=== PATIENT | male | born 1945 | race Caucasian/White ===

== ENCOUNTER 2017-06-22 22:05 | Emergency (ER) | payer SELFPAY ==
[~2017-06-22] VITALS: Ht 157.5 cm; Wt 61.0 kg
[2017-06-22 22:10] VITALS: BP 149/78
--- NOTE | 2017-06-22 22:25 | NUR ---
To bed 7.
[2017-06-22] MEDS ORDERED: NACL 0.9% 2,000 ML IV ONE (22:55)
--- NOTE | 2017-06-22 23:02 | NUR ---
12 LEAD EKG DONE BY SURGEON ASSISTANT.
--- NOTE | 2017-06-22 23:08 | NUR ---
GAUGE 18 IV LINE ESTABLISHED TO THE RIGHT FOREARM. BLOOD DRAWN AND SENT TO THE LAB. NS 2 LITERS BOLUS STARTED.
[2017-06-22 23:25] LABS: BASOPHILS # (AUTO) 0.1 K/uL (0.00-0.22); BASOPHILS % (AUTO) 2.3 % (0.0-2.0); EOSINOPHILS # (AUTO) 0.1 K/uL (0-0.4); EOSINOPHILS % (AUTO) 2.1 % (0.0-4.0); HEMATOCRIT 42.9 % (36-52); HEMOGLOBIN 14.1 g/dL (12.0-18.0); LYMPHOCYTES # (AUTO) 1.5 K/uL (2.0-11.5); LYMPHOCYTES % (AUTO) 24.6 % (20.5-51.1); MEAN CORPUSCULAR HEMOGLOBIN 29 pg (27-31); MEAN CORPUSCULAR HGB CONC 33 g/dL (33-37); MEAN CORPUSCULAR VOLUME 87 fL (80-94); MONOCYTES # (AUTO) 0.6 K/uL (0.8-1.0); MONOCYTES % (AUTO) 10.6 % (1.7-9.3); NEUTROPHILS # (AUTO) 3.8 K/uL (1.8-7.7); NEUTROPHILS % (AUTO) 60.4 % (42.2-75.2); PLATELET COUNT (AUTO) 191 K/uL (140-450); RED BLOOD CELL COUNT(AUTO) 4.91 MIL/uL (4.20-6.10); RED CELL DISTRIBUTION WIDTH 12.6 % (11.6-13.7); WHITE BLOOD COUNT (AUTO) 6.1 K/uL (4.8-10.8)
[2017-06-22 23:38] LABS: ALBUMIN 3.5 g/dL (3.4-5.0); CARBON DIOXIDE 27.2 mmol/L (21-32); CREATININE 1.5 mg/dL (0.7-1.3); POTASSIUM 4.2 mmol/L (3.5-5.1); TOTAL BILIRUBIN 0.3 mg/dL (0.0-1.0)
--- NOTE | 2017-06-22 23:52 | NUR ---
URINE SPECIMEN COLLECTED AND SENT TO THE LAB.
[2017-06-22 23:56] LABS: APPEARANCE,URINE CLEAR (CLEAR); BILIRUBIN,URINE NEGATIVE (NEGATIVE); BLOOD, URINE NEGATIVE (NEGATIVE); COLOR,URINE YELLOW (YELLOW); LEUKOCYTE ESTERASE ,URINE NEGATIVE (NEGATIVE); NITRITE, URINE NEGATIVE (NEGATIVE); PH,URINE 5.5 (5.0-9.0); UGLUCOSE 3+ (NEGATIVE)
[2017-06-23] MEDS ORDERED: ASPIRIN 81 MG TAB.CHEW PO ONE
[2017-06-23 00:05] LABS: RBC,URINE NONE SEEN /HPF (0-5); WBC,URINE NONE SEEN /HPF (0-5)
--- NOTE | 2017-06-23 00:08 | NUR ---
ASPIRIN 162 MG PO GIVEN. PT. VERBALIZED IMPROVEMENT OF HEADACHE. MD BACK AT BEDSIDE TO RE-EVALUATE AND DISCUSS PLAN OF CARE WITH PATIENT AND FAMILY. VS REMAIN STABLE.
--- NOTE | 2017-06-23 00:15 | NUR ---
ABG DRAWN BY RT. HMCORFPGO=[id number]. NOTIFIED.
--- NOTE | 2017-06-23 00:18 | NUR ---
PORTABLE CXR DONE.
[2017-06-23] MEDS ORDERED: INSULIN HUMAN REGULAR 100 UNITS/ML 10 ML VIAL IVP ONE (00:20)
--- NOTE | 2017-06-23 00:28 | NUR ---
10 UNITS OF REGULAR INSULIN IVP GIVEN ORDERED.
[2017-06-23 00:29] LABS: PROTHROMBIN TIME 10.1 secs (10.8-13.4)
[2017-06-23] MEDS ORDERED: NACL 0.9% 1,000 ML IV SCH (00:32)
[2017-06-23] MEDS ORDERED: MORPHINE SULFATE 2 MG/ML SYR IVP PRN ×2 (00:35→00:40)
[2017-06-23] MEDS ORDERED: ONDANSETRON 4 MG/2 ML VIAL IM/IVP PRN (00:35)
[2017-06-23] MEDS ORDERED: HYDROcodone/APAP 7.5/325 MG 1 TAB PO PRN (00:35)
[2017-06-23] MEDS ORDERED: DOCUSATE SODIUM 100 MG GELCAP PO PRN (00:35)
[2017-06-23] MEDS ORDERED: ACETAMINOPHEN 325 MG TAB PO PRN (00:35)
[2017-06-23] MEDS ORDERED: DEXTROSE 50% 50 ML SYR IVP PRN (00:40)
[2017-06-23] MEDS ORDERED: INSULIN LISPRO SLIDING SCALE 100 UNITS/ML VIAL SUBQ PRN (00:40)
[2017-06-23] MEDS ORDERED: NITROGLYCERIN 0.4 MG TAB SL PRN (00:40)
[2017-06-23] MEDS ORDERED: ATORVASTATIN 20 MG TAB PO SCH ×2 (00:45→21:00)
[2017-06-23] MEDS ORDERED: METOPROLOL SUCCINATE 50 MG TABER PO SCH ×2 (00:45→09:00)
[2017-06-23 00:59] LABS: BARBITURATE, URINE NEG. ng/ml (NEG <=200); BENZODIAZEPINE, URINE NEG. ng/mL (NEG <=200); CANNABINOID, URINE NEG. ng/mL (NEG <=50); COCAINE, URINE NEG. ng/mL (NEG <=300); OPIATE, URINE NEG. ng/mL (NEG <=2000); PHENCYCLIDINE SCREEN,URINE NEG. ng/mL (NEG <=25)
[2017-06-23 01:07] LABS: CHOL/HDL RATIO 5.5 (1-4.5); FREE T4 (FREE THYROXINE) 1.1 ng/dL (0.76-1.46); MAGNESIUM 1.8 mg/dL (1.8-2.4); PHOSPHORUS 3.6 mg/dL (2.5-4.9); THYROID STIMULATING HORMONE 2.05 uIU/mL (0.34-3.74)
--- NOTE | 2017-06-23 01:13 | NUR ---
PT.REFUSED TO BE ADMITTED. WILL B LAVING AGAINST MEDICAL ADVICE. REPAT BLOOD SUGAR ODHOO=[id number]. MADE AWARE.
--- NOTE | 2017-06-23 01:35 | NUR ---
Patient does not wish to proceed with medical care recommended by Dr.Martin Fiore. Patient given information related to possible complications, up to and including , which could occur as a result of leaving hospital at this time. Patient verbalizes understanding of risks involved leaving against medical advice. Patient has signed AMA form. Copy of labs,12 lead ekg report also given. Advised to follow-up with PMD courtney and to return if symptoms worsen or has any other concerns.
[2017-06-23 01:45] VITALS: BP 145/77
[2017-06-23] MEDS ORDERED: BLOOD GLUCOSE MONITORING 1 DEV DEV FS SCH (07:30)
[2017-06-23] MEDS ORDERED: ASPIRIN 81 MG TAB.CHEW PO SCH (09:00)
[2017-06-23] MEDS ORDERED: LISINOPRIL 20 MG TAB PO SCH ×2 (09:00)
[2017-06-24 08:26] LABS: T4 (THYROXINE) 8.3 ug/dL (4.5-12.0)
== END 2017-06-23 01:35 | disposition left against medical advice (07) ==
LOC: MED 22:05
DX: E11.65 Type 2 diabetes mellitus with hyperglycemia (principal); N28.9 Disorder of kidney and ureter, unspecified; R03.0 Elevated blood-pressure reading, without diagnosis of hypertension
CPT/HCPCS: 36415; 36600; 71010; 80053; 80061; 80305; 81001; 82150; 82803; 82948; 83036; 83690; 83735; 83880; 84100; 84436; 84439; 84443; 84479; 84484; 85025; 85610; 85730; 93005; 96361; 96374; 99291; J1815; J7030; Q0092; 99285